=== PATIENT | male | born 1960 | race African-American/Black ===

== ENCOUNTER 2021-11-08 10:06 | Outpatient (CLI) | payer BC, SELFPAY ==
--- NOTE | ~2021-11-08 | MR_ITS ---
EXAMINATION: MR abdomen wo/w con DATE: 11/08/2021 11:24 INDICATION: Adrenal mass. TECHNIQUE: Multisequence magnetic resonance imaging (MRI) of the abdomen was performed without and wi th 20 mL MultiHance intravenous contrast. COMPARISON: None. FINDINGS: There is diffuse hepatic steatosis. There is cystic thickening of the gallbladder wall, consistent wi th adenomyomatosis. The spleen, pancreas, and left adrenal gland are normal. There is a 1.6 cm mass i n right adrenal gland containing microscopic fat, consistent with an adenoma. There are cysts in the kidneys measuring up to 9 mm in the right. There are no dilated loops of bowel. There are no patholog ically enlarged lymph nodes. There is no free intraperitoneal fluid. IMPRESSION: 1. 1.6 cm right adrenal adenoma. Reviewed, dictated and finalized at location A.
[2021-11-08 10:34] LABS: Estimated Glomerular Filt Rate > 60
== END 2021-11-08 10:07 | disposition home or self-care (01) ==
PROVIDERS: Visit Provider Urology
DX: E27.8 Other specified disorders of adrenal gland (principal)
CPT/HCPCS: 74183; A9577